=== PATIENT | male | born 1990 | race Caucasian/White ===

== ENCOUNTER → 2023-07-16 10:49 | Outpatient (BNVA) | payer SELFPAY | PROVIDERS: Visit Provider Nurse Practitioner Family | DX: M25.572 Pain in left ankle and joints of left foot (principal) | CPT/HCPCS: 73610 ==

== ENCOUNTER 2024-03-09 21:33 | Emergency (ER) | payer SELFPAY ==
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
[2024-03-09 21:38] VITALS: BP 129/83; PULSE 93; RESP 16; TEMP 36.9; O2SAT 97
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
[2024-03-09] MEDS: HYDROcodone-acetaminophen 5-325 mg Tablet 1 TAB PO (22:04)
--- NOTE | 2024-03-09 22:31 | DCPLANNER ---
Message sent to Podiatry for follow up on a: non-displaced distal fibula fracture.
== END 2024-03-09 23:06 | disposition home or self-care (01) ==
PROVIDERS: Emergency Provider Nurse Practitioner Family
DX: S82.831A Other fracture of upper and lower end of right fibula, initial encounter for closed fracture (principal); Z72.0 Tobacco use; T14.8XXA Other injury of unspecified body region, initial encounter; Y04.8XXA Assault by other bodily force, initial encounter
CPT/HCPCS: 29515; 73610; 73630; 99283; A4590; E0114

== ENCOUNTER → 2024-03-14 13:57 | Outpatient (BNVA) | payer SELFPAY | PROVIDERS: Visit Provider Podiatrist Foot & Ankle Surgery | DX: S82.831A Other fracture of upper and lower end of right fibula, initial encounter for closed fracture (principal); Y08.89XA Assault by other specified means, initial encounter | CPT/HCPCS: 73610; 73620 ==

== ENCOUNTER → 2024-03-28 07:40 | Outpatient (BNVA) | payer SELFPAY | PROVIDERS: Visit Provider Podiatrist Foot & Ankle Surgery | DX: S82.831A Other fracture of upper and lower end of right fibula, initial encounter for closed fracture (principal); Y08.89XA Assault by other specified means, initial encounter | CPT/HCPCS: 73610; 73630 ==

== ENCOUNTER → 2024-04-10 07:04 | Outpatient (BNVA) | payer SELFPAY | PROVIDERS: Visit Provider Podiatrist Foot & Ankle Surgery | DX: S82.831A Other fracture of upper and lower end of right fibula, initial encounter for closed fracture (principal); X58.XXXA Exposure to other specified factors, initial encounter | CPT/HCPCS: 73610 ==